=== PATIENT | female | born 1990 | race African-American/Black ===

== ENCOUNTER 2019-06-07 01:24 | Emergency (ER) | payer OTHER ==
[~2019-06-07] VITALS: Ht 167.6 cm; Wt 116.6 kg
[2019-06-07] MEDS ORDERED: CEPHALEXIN500 MG PO (02:42)
[2019-06-07] MEDS ORDERED: ACETAMINOPHEN-1 EAC1 PO (02:42)
== END 2019-06-07 02:50 | disposition home or self-care (01) ==
LOC: ED 01:24
DX: K08.89 Other specified disorders of teeth and supporting structures (principal); Z88.2 Allergy status to sulfonamides
CPT/HCPCS: 99282; A9270